=== PATIENT | male | born 1995 | race Caucasian/White ===

== ENCOUNTER 2017-12-27 20:04 | Inpatient (IN) | payer OTHER, SELFPAY ==
[2017-12-27 20:04] VITALS: BP 141/86; PULSE 113; RESP 18; TEMP 36.6; O2SAT 97; BMI 29.8
--- NOTE | 2017-12-27 21:16 | ED.VISSUMM ---
- ER Visit Summary Date of Service: 12/27/17 Chief Complaint: Requesting detox for alcohol abuse History of Present Illness: The patient is a 22 M states he drinks 151 Rum on a daily basis. About a third of a bottle a day. He also uses marijuana daily. He states this is all been going on for approximately a year. And is requesting inpatient detox. He denies any medical complaints. Physical Examination: Well-appearing young male. Vital signs are stable afebrile. HEENT exam unremarkable. Neck nontender no lymphadenopathy. Lungs clear to auscultation bilaterally. Heart regular rhythm rate about 113 no murmur. Chest wall nontender. Abdomen soft nontender. Normal bowel sounds. He is moving all 4 extremities. Neurovascularly intact. Neurologically he is awake alert with no focal motor or sensory deficits. Back nontender. Test Results: None Emergency Department Course and Treatment: I will speak to the hospitalist and the patient is admitted for detox. Treatment Plan: I spoke with the hospitalist for admission and then the patient be evaluated by [facility] tomorrow. Disposition: Admission Impression: Requesting detox for both alcohol and marijuana abuse. This note was generated with [employer] dictation software. It may contain incorrect words, spelling, and punctuation that were not noted in review of the chart prior to signing ED Disposition - Plan for ED Patient: Chief Complaint: Substance Abuse Referrals: Care Physician,No Primary [Primary Care Provider] -
[2017-12-27] MEDS: Acetaminophen 500 MG Tablet 1000 MG PO (22:00)
[2017-12-27] MEDS: LORazepam 1 MG Tablet PO (22:01)
[2017-12-27 22:06] VITALS: BP 127/99; PULSE 92; RESP 16; O2SAT 98
[2017-12-27 22:27] VITALS: BP 132/88; PULSE 81; RESP 16; TEMP 36.9; O2SAT 98
[2017-12-27 22:29] VITALS: BMI 29.5
[2017-12-27 22:35] VITALS: BMI 29.5
--- NOTE | 2017-12-27 23:18 | HP.PCM_ITS ---
Problem List (1) Alcohol withdrawal Status: Acute Qualifiers: Complication of substance-induced condition: uncomplicated Qualified Code(s ): F10.230 - Alcohol dependence with withdrawal, uncomplicated History of Present Illness Date of Admission: 12/27/17 Chief Complaint: Alcohol withdrawal The patient is a 22 year old M was seen in the emergency room at [facility] with a chief complaint of active alcohol withdrawal and the desire to go through detox program at [facility]. Patient states he has been drinking since age 17, during his teenage years he would drink as much as he could obtain during his bouts of drinking and was drinking quite often. Patient states since he has turned 22 and is able to get alcohol legally, his drinking has accelerated and he drinks approximately a third of a bottle ( bottle meaning 750 ml) of 151 vodka per day over the last week. Patient states that he has cut down on his drinking over the last week at the insistence of those around him. Before then, patient was drinking as much as a full bottle of 151 vodka daily on my bad days and on a usual day was drinking approximately a little more than half a bottle of 151 vodka (approximately 400 mL). Patient has not been through detox program before, he has received pressure from his girlfriend who insisted that he come to the emergency room for alcohol detox and the patient has agreed that it is right thing to do. Patient is having symptoms of extreme anxiety and restlessness, he has had some nausea, he also complains of malaise and tremors. No labs were obtained in the emergency room, patient states that his last drink was 2:00 this afternoon, he states he drank approximately 4 ounces of 151 vodka today. Patient will be admitted into the medical stabilization program on [facility] 3 for acute alcohol withdrawal and detox. Past Medical History Allergies No Known Allergies Allergy (Verified 12/27/17 20:05) Home Medications: Ambulatory Orders Medication Instructions Recorded No Known/Unobtainable [No Known 01/17/17 Home Medications] Surgical History: no surgical history Psychiatric History: No pertinent psych hx Lives: Alone Smoking Status: Never smoker Tobacco Use: Non-smoker Alcohol: Heavy Drugs: Marijuana - *Family History Maternal History Items: Cancer - Brain cancer Paternal History Items: No pertinent history Review of Systems Constitutional: Reports: Malaise. Denies: Anorexia, Chills, Fever, Night Sweats , Weakness, Weight Change, Fatigue Eyes: Denies: Cataracts, Conjunctivae Inflammation, Double vision, Drainage HEENT: Denies: Difficulty Swallowing, Dysphasia, Ear Pain, Eye Pain, Head Aches , Hearing Changes, Nasal bleeding, Nasal Congestion, Post Nasal Drip Cardiovascular: Denies: Chest Pain, Claudication, Chest Pressure, Chest Tightness, Edema, Heaviness, Orthopnea, Palpitations, Paroxysmal Noc. Dyspnea Respiratory: Denies: Cough, Hemoptysis, Pleuritic Pain, Shortness of Breath, Shortness of breath at rest, Shortness of breath upon exertion, Sputum production Gastrointestinal: Reports: Nausea. Denies: Abdominal Pain, Constipation, Diarrhea, Hematemesis, Hematochezia, Melena, Vomiting Genitourinary: Denies: Dysuria, Frequency, Hematuria, Hesitancy, Nocturia, Retention, Urgency Musculoskeletal: Denies: Back Pain, Foot Pain, Hand Pain, Joint Pain, Joint stiffness, Joint swelling, Joint Tenderness, Leg Pain Skin: Denies: Dryness, Jaundice, Pruritis, Rash Neurological: Reports: Tremor. Denies: Blurred vision, Double vision, Change in Speech, Slurred speech, Difficulty swallowing, Focal weakness, Headaches, Incoordination, Numbness, Tingling Psychiatric: Reports: Anxiety. Denies: Depression, Homicidal Ideations, Suicidal Ideations Endocrine: Denies: Change in Body Habitus, Heat/ Cold Intolerance, Polydipsia, Polyuria Hematologic/ Lymphatic: Denies: Adenopathy, Anemia, Easy Bruising, Easy Bleeding , Petechiae, Purpura VTE Information - Inpt Only VTE Present on Admission: No VTE Mechan Device Prophylaxis: None VTE Pharm Prophylaxis ordered?: No Reason prophylaxis not ordered:: Treatment Not Indicated Patient Problems: Active and Suspected Problems Alcohol withdrawal (Acute) - Physical Exam General: Alert, Oriented x3, Cooperative, No apparent distress, Well developed, Well nourished HEENT: Atraumatic, PERRLA, EOMI, Normocephalic Oral: Moist Mucosa Neck: Supple, No JVD, No Nuchal Rigidity, Trachea Midline, Thyroid Normal Size and Texture Lungs: Clear to auscultation, Normal air movement, No rhonchi, No wheeze, No rales Cardiovascular: Regular rate, Regular Rhythm, Normal S1, Normal S2, No murmurs, No Ectopic Activity, PMI Normal, No rub noted, No Gallop Abdomen: Bowel Sounds Present, Soft, Non Tender, Non-Distended, No hernias noted Extremities: No clubbing, No cyanosis, No edema, Capillary Refill Less than 3 Seconds Skin: No rashes, No breakdown Musculoskeletal: No Tenderness to Palpation of Joints or Extremities Neurological: Cranial nerves II-XII grossly intact, Neuro grossly intact, Sensory exam intact to light touch and pain, Coordination normal Psych/Mental Status: Appropriate, Agitated, Anxious, Restless, - - Patient is alert and oriented ?3 Vital Signs Temp Pulse Resp BP Pulse Ox 98.4 F 81 16 132/88 H 98 12/27/17 22:27 12/27/17 22:27 12/27/17 22:27 12/27/17 22:27 12/27/17 22:27 Oxygen Delivery Method Room Air Weight: 98.7 kg Body Mass Index (BMI) 29.5 Assessment/Plan All Active Problems Alcohol withdrawal (Acute) #1 acute alcohol withdrawal-patient will be admitted into the medical stabilization program on [facility] 3, orders were entered using the medical stabilization order sets, patient will have CIWA scores monitored, he will be given Ativan IV as needed, patient will be placed on Librium. I do not feel patient needs any lab work at this time #2 alcoholism Code Visit Inpatient E&M: 77744 Init Hosp L3
[2017-12-27] MEDS: Acetaminophen 500 MG Tablet PO (23:41)
[2017-12-27] MEDS: LORazepam 1 MG Tablet 2 MG PO (23:42)
[2017-12-28 03:18] VITALS: BP 114/66; PULSE 93; RESP 14; TEMP 36.7; O2SAT 99
[2017-12-28] MEDS: chlordiazePOXIDE 25 MG Capsule PO ×4 (03:22→23:35)
--- NOTE | 2017-12-28 07:34 | PN_ITS ---
Patient Problems: Active and Suspected Problems Alcohol withdrawal (Acute) Subjective: Patient was seen and examined. He complains of dyspepsia. Denies chest pain, dizziness, SOB. Last CIWA score was 4 this morning. Vitals/I&O's: Vital Signs Temp Pulse Resp BP Pulse Ox 98.0 F 93 14 114/66 99 12/28/17 03:18 12/28/17 03:18 12/28/17 03:18 12/28/17 03:18 12/28/17 03:18 Oxygen Delivery Method Room Air Weight: 98.7 kg Body Mass Index (BMI) 29.5 Intake and Output for Last 24 Hours 12/26/17 12/27/17 12/28/17 23:59 23:59 23:59 Intake Total 900 / 900 Balance 900 / 900 General: Alert, Oriented x3, Cooperative, No apparent distress HEENT: Atraumatic, PERRLA, EOMI, Normocephalic Oral: Moist Mucosa Neck: Supple Lungs: Clear to auscultation, Normal air movement Cardiovascular: Regular rate, Regular Rhythm, Normal S1, Normal S2, No murmurs Abdomen: Bowel Sounds Present, Soft, Non Tender, Non-Distended, No Hepato- splenomegaly Extremities: No edema Skin: No rashes Musculoskeletal: No Tenderness to Palpation of Joints or Extremities Lymphatic: No Cervical, Supraclavicular, or Inguinal Adenopathy Neurological: Cranial nerves II-XII grossly intact Psych/Mental Status: Normal Affect, Appropriate Current Medications Acetaminophen (Tylenol) 500 mg PO Q4H PRN PRN PRN Reason: Temp > 100.4 F Last Admin: 12/27/17 23:41 Dose: 500 mg Chlordiazepoxide (Librium) 50 mg PO Q6H SAJI PRN Reason: Taper Stop: 12/30/17 23:59 Last Admin: 12/28/17 03:22 Dose: 50 mg Dicyclomine HCl (Bentyl) 20 mg PO Q6H PRN PRN PRN Reason: abdominal discomfort Folic Acid (Folic Acid) 1 mg PO DAILYCM SAJI Ibuprofen (Motrin) 600 mg PO Q8H PRN PRN PRN Reason: Mild-Moderate Pain (1-5/10) Lorazepam (Ativan) 2 mg PO Q2H PRN PRN; Protocol PRN Reason: CIWA score > 8 but <15 Last Admin: 12/27/17 23:42 Dose: 2 mg Multivitamins (Multivitamin) 1 tablet PO DAILYCM SAJI Sodium Chloride () 5 - 30 ml IV UD PRN PRN Reason: SALINE FLUSH Thiamine HCl (Vitamin B1) 100 mg PO DAILYCM SAJI Medical Necessity - Tobacco Use Smoking Status: Never smoker Tobacco Use: Non-smoker Assessment/Plan All Active Problems Alcohol withdrawal (Acute) 22 y/o male with PMHX of alcohol dependence who comes in for medical stabilization for alcohol withdrawal. 1. Acute alcohol withdrawal, stable, will continue to monitor under the medical stabilization program. 2. Alcohol dependence, advised to quit 3. DVT PPx- early ambulation. Code Visit Inpatient E&M: 90217 Subs Hosp L2
[2017-12-28 09:20] VITALS: BP 133/82; PULSE 67; RESP 14; TEMP 36.6
[2017-12-28] MEDS: Folic Acid 1 MG Tablet PO (09:32)
[2017-12-28] MEDS: Multivitamins,Therapeutic Tablet 1 TABLET PO (09:32)
[2017-12-28] MEDS: Thiamine Hydrochloride 100 MG Tablet PO (09:32)
[2017-12-28] MEDS: Ibuprofen 600 MG Tablet PO (09:32)
[2017-12-28] MEDS: LORazepam 1 MG Tablet 2 MG PO ×2 (12:04→21:50)
[2017-12-28 14:50] VITALS: BP 129/79; PULSE 70; RESP 16; TEMP 36.5
[2017-12-28 18:55] VITALS: BP 125/69; PULSE 77; RESP 16; TEMP 36.7
[2017-12-28] MEDS: hydrOXYzine PAM 25 MG Capsule 50 MG PO (19:30)
[2017-12-28 21:40] VITALS: BP 129/82; PULSE 65; RESP 14; TEMP 36.6; O2SAT 97
[2017-12-29 03:06] VITALS: BP 128/73; PULSE 92; RESP 16; TEMP 36.4; O2SAT 99
[2017-12-29 06:03] LABS: Absolute Lymphocyte Count 2.31 X10^3/ul (0.83-4.51); Absolute Neutrophil Count 2.8 X10^3/uL (2.0-7.7); Basophil# 0.03 X10^3/uL; Basophil% 0.5 % (0-1); Eosinophils% 3.4 % (0-5); Hematocrit 44.3 % (40-54); Hemoglobin 14.9 g/dl (13.0-16.5); Lymphocyte # 2.31 X10^3/ul (4.0); Lymphocyte % 39.5 % (19-41); Mean Corp Hgb Conc 33.6 g/gl (32-36); Mean Corpuscular Hgb 30.6 pg (27.0-32.0); Mean Platelet Vol. 9.8 fl (6.2-12.0); Monocyte# 0.46 X10^3/uL; Monocyte% 7.9 % (0-10); Neutrophil # 2.84 X10^3/uL (2.7-7.7); Neutrophil % 48.5 % (47-70); Platelet Count 200 K/mm3 (150-450); RBC Distribution Width CV 12.8 % (11.6-14.6); RBC Distribution Width SD 42.3 fl (35.1-43.9); Red Blood Count 4.87 M/mm3 (4.6-6.2); White Blood Count 5.9 K/mm3 (4.4-11.0)
[2017-12-29 06:20] LABS: POSITIVE COUNT NO; POSITIVE DIFFERENTIAL NO; POSITIVE MORPHOLOGY NO
[2017-12-29 06:27] LABS: ALB/GLOB Ratio 1.2 RATIO (0.9-2.4); AST(SGOT) 30 U/L (15-37); Alanine Aminotransfer ALT/SGPT 43 U/L (16-61); Albumin, Serum 3.8 g/dL (3.2-5.0); Alkaline Phosphatase 53 U/L (45-117); Anion Gap 8 (5-15); BUN 17 mg/dL (7-18); BUN/Creat Ratio 16.8 RATIO (10-20); Calcium,Total 8.6 mg/dL (8.5-10.1); Chloride 108 mmol/L (98-107); Creatinine, Serum 1.01 mg/dL (0.70-1.30); EST Glomerular Filtration Rate 98 mL/min (>60); Est Glom Filt Rate - Afr Amer 119 mL/min (>60); Estimated Creatinine Clearance 126.99 ml/min; Globulin 3.1 g/dL (2.2-4.2); Glucose 89 mg/dL (74-106); Potassium 4.1 mmol/L (3.5-5.1); Protein, Total 6.9 g/dL (6.4-8.2); Sodium Level 142 mmol/L (136-145)
--- NOTE | 2017-12-29 07:58 | PCM.PN.HOSP ---
Patient Problems: Active and Suspected Problems Alcohol withdrawal (Acute) Subjective: Patient was seen and examined. Had episodes of anxiety yesterday. No other acute events overnight. Denies any fever or chills. Objective: Physical exam: General: Alert, Oriented x3, Cooperative, No apparent distress HEENT: Atraumatic, PERRLA, EOMI, Normocephalic Oral: Moist Mucosa Neck: Supple Lungs: Clear to auscultation, Normal air movement Cardiovascular: Regular rate, Regular Rhythm, Normal S1, Normal S2, No murmurs Abdomen: Bowel Sounds Present, Soft, Non Tender, Non-Distended, No Hepato-splenomegaly Extremities: No edema Skin: No rashes Musculoskeletal: No Tenderness to Palpation of Joints or Extremities Lymphatic: No Cervical, Supraclavicular, or Inguinal Adenopathy Neurological: Cranial nerves II-XII grossly intact Psych/Mental Status: Normal Affect, Appropriate Vitals/I&O's: Vital Signs Temp Pulse Resp BP Pulse Ox 97.6 F L 92 16 128/73 H 99 12/29/17 03:06 12/29/17 03:06 12/29/17 03:06 12/29/17 03:06 12/29/17 03:06 Oxygen Delivery Method Room Air Weight: 98.7 kg Body Mass Index (BMI) 29.5 Intake and Output for Last 24 Hours 12/27/17 12/28/17 12/29/17 23:59 23:59 23:59 Intake Total 2049 900 / 900 Balance 2049 900 / 900 Laboratory Results 12/29/17 04:55: WBC 5.9, RBC 4.87, Hgb 14.9, Hct 44.3, MCV 91.0, MCH 30.6, MCHC 33.6, RDW 12.8, RDW Differential 42.3, Plt Count 200, MPV 9.8, Immature Gran % (Auto) 0.200, Neut % (Auto) 48.5, Lymph % (Auto) 39.5, Mower % (Auto) 7.9, Eos % (Auto) 3.4, Baso % (Auto) 0.5, Absolute Neuts (auto) 2.8, Absolute Lymphs (auto) 2.31, Total Counted Not Reportable 12/29/17 04:55: Sodium 142, Potassium 4.1, Chloride 108 H, Carbon Dioxide 26.0, Anion Gap 8, BUN 17, Creatinine 1.01, Estim Creat Clear Calc 126.99, Est GFR (MDRD) Af Amer 119, Est GFR (MDRD) Non-Af 98, BUN/Creatinine Ratio 16.8, Glucose 89, Calcium 8.6, Total Bilirubin 0.50, AST 30, ALT 43, Alkaline Phosphatase 53, Total Protein 6.9, Albumin 3.8, Globulin 3.1, Albumin/Globulin Ratio 1.2 Current Medications Acetaminophen (Tylenol) 500 mg PO Q4H PRN PRN PRN Reason: Temp > 100.4 F Last Admin: 12/27/17 23:41 Dose: 500 mg Al Hydroxide/Mg Hydroxide (Mylanta Ii) 15 ml PO Q6H PRN PRN PRN Reason: DYSPEPSIA/INDIGESTION Chlordiazepoxide (Librium) 50 mg PO Q8H [facility] PRN Reason: Taper Stop: 12/30/17 23:59 Last Admin: 12/28/17 23:35 Dose: 50 mg Dicyclomine HCl (Bentyl) 20 mg PO Q6H PRN PRN PRN Reason: abdominal discomfort Folic Acid (Folic Acid) 1 mg PO [facility]ILY[facility] Last Admin: 12/28/17 09:32 Dose: 1 mg Hydroxyzine Pamoate (Vistaril Pamoate Capsule) 50 mg PO Q6H PRN PRN PRN Reason: Mild Anxiety (score 1/3) Last Admin: 12/28/17 19:30 Dose: 50 mg Ibuprofen (Motrin) 600 mg PO Q8H PRN PRN PRN Reason: Mild-Moderate Pain (1-5/10) Last Admin: 12/28/17 09:32 Dose: 600 mg Lorazepam (Ativan) 2 mg PO Q2H PRN PRN; Protocol PRN Reason: CIWA score > 8 but <15 Last Admin: 12/28/17 21:50 Dose: 2 mg Multivitamins (Multivitamin) 1 tablet PO DAILYCO[facility] Last Admin: 12/28/17 09:32 Dose: 1 tablet Sodium Chloride () 5 - 30 ml IV UD PRN PRN Reason: SALINE FLUSH Thiamine HCl (Vitamin B1) 100 mg PO DAILYCOX [facility] Last Admin: 12/28/17 09:32 Dose: 100 mg Medical Necessity - Tobacco Use Smoking Status: Never smoker Tobacco Use: Non-smoker Assessment/Plan All Active Problems Alcohol withdrawal (Acute) 22 y/o male with PMHX of alcohol dependence who comes in for medical stabilization for alcohol withdrawal. 1. Acute alcohol withdrawal, stable, will continue to monitor under the medical stabilization program. 2. Alcohol dependence, advised to quit 3. DVT PPx- early ambulation. Code Visit Inpatient E&M: 11775 Subs Hosp L2
[2017-12-29 08:39] VITALS: BP 121/78; PULSE 55; RESP 18; TEMP 36.6; O2SAT 100
[2017-12-29 08:42] VITALS: BP 122/78; PULSE 55; RESP 18; TEMP 36.6
[2017-12-29] MEDS: chlordiazePOXIDE 25 MG Capsule PO ×2 (08:45→17:52)
[2017-12-29] MEDS: Multivitamins,Therapeutic Tablet 1 TABLET PO (08:45)
[2017-12-29] MEDS: Thiamine Hydrochloride 100 MG Tablet PO (08:45)
[2017-12-29] MEDS: Folic Acid 1 MG Tablet PO (08:45)
[2017-12-29] MEDS: LORazepam 1 MG Tablet 2 MG PO ×2 (12:34→18:57)
[2017-12-29 14:00] VITALS: BP 124/68; PULSE 77; RESP 16; TEMP 36.9
[2017-12-29] MEDS: hydrOXYzine PAM 25 MG Capsule 50 MG PO ×2 (14:25→21:11)
--- NOTE | 2017-12-29 15:08 | CHAPLAIN ---
Type of Pastoral Visit _x__ Initial Visit ___ Follow-up Visit ___ On-call Visit ___ General Patient Visit ___ Spiritual Assessment ___ Family Conference ___ Bereavement ___ Rapid Response ___ Code Blue ___ Other (describe below) Pastoral Care Referral From _x__ Patient ___ Family ___ Nurse ___ Physician ___ Sales Compensation Analyst ___ Thiokol Operator ___ Other (describe below) Sacrament/Intervention _x__ Active listening ___ Anointing ___ Mosque ___ Bereavement ___ Communion _x__ Bella exploration ___ _x__ Life review _x__ Prayer ___ Reconciliation ___ Sacrament of Sick _x__ Supportive presence ___ Wedding ___ Other (describe below) Pastoral Comments patient has shifted addiction to alcohol; family intervention brought him awareness of depth of the addiction; pt is newly engaged to be and need to get this handled; pt has disappointment with a parent and spiritual pain from deception of a community outreach worker that he sees as underlying in some of his emotional struggles; pt welcomes prayer and further visits; pt will have counseling upon release from hospital
[2017-12-29 17:51] VITALS: BP 123/68; PULSE 79; RESP 18; TEMP 36.6
[2017-12-29 21:18] VITALS: BP 134/77; PULSE 68; RESP 16; TEMP 36.4; O2SAT 97
[2017-12-30] MEDS: chlordiazePOXIDE 25 MG Capsule PO ×2 (00:09→11:27)
[2017-12-30 06:43] VITALS: BP 109/77; PULSE 63; RESP 16; TEMP 36.5; O2SAT 97
--- NOTE | 2017-12-30 08:40 | DS.PCM_ITS ---
Discharge Date and Diagnosis Date of Admission: 12/27/17 Date of Discharge: 12/30/17 - Primary Discharge Diagnosis Active and Suspected Problems Alcohol withdrawal (Acute) Anxiety - Secondary Discharge Diagnosis Anxiety Hospital Course and Treatment None Operations: None Procedures: None Summary of Care Provided: 22 y/o male with PMHX of alcohol dependence, anxiety disorder comes in for medical stabilization for alcohol withdrawal. He has been drinking since the age of 17. He would drink as much he can in his teenage years. After the age of 22 years, when he could get alcoholical legally, he has accelerated his drinking and drinks about a third of a bottle. He drinks now a full bottle of 151 vodka daily. He comes in at the persuasion of the family. He last labs drawn alcohol 2 PM prior to his admission. His management was as follows: 1. Acute alcohol withdrawal, managed with Librium and Ativan on the day medical stabilization call with the [facility] program. Patient improved and was discharged to follow-up with an inpatient drug rehab program and later on to follow-up with outpatient counseling center. 2. Alcohol dependence, advised to quit 3. Anxiety disorder, started on celexa Discharge Diet: No Restrictions Discharge Activity: Return to Normal Activity Home Medications: Medications to take at Discharge Citalopram [Celexa] 10 mg PO DAILY #30 tab 12/30/17 Following Prescrptions Were Given to Patient: Citalopram [Celexa] 10 mg PO DAILY #30 tab Primary Care Physician: Care Physician,No Primary [Primary Care Provider] - Please follow up with your Primary Care Physician in: within in 2 weeks Disposition: Home Minutes spent on discharge:: 45 Patient Condition:: Stable Medical Necessity - Tobacco Use Smoking Status: Never smoker Tobacco Use: Non-smoker Meaningful Use Info Meaningful Use Diagnoses (Choose all that apply): None applicable Code Visit Inpatient E&M: 44274 Disch Hosp
--- NOTE | 2017-12-30 08:40 | PCM.DC ---
- Discharge Diagnoses Current Active Problems: Current Active and Chronic Problems Alcohol withdrawal (Acute) Reason(s) for Visit for Discharge Instructions: Acute alcohol withdrawal You will use the following diet at home:: Regular Your food should be the consistency of: Regular Your liquids should be the consistency of: Regular/Thin Discharge Activity: Return to Normal Activity Additional Instructions: You are strongly advised to stop drinking. Follow-up with the aftercare program as planned and also with your therapist and PCP. Allergies/Adverse Reactions: Allergies No Known Allergies Allergy (Verified 12/27/17 20:05) Medications to take at Discharge Citalopram [Celexa] 10 mg PO DAILY #30 tab 12/30/17 The following prescriptions were given: Citalopram [Celexa] 10 mg PO DAILY #30 tab Primary Care Physician: Care Physician,No Primary [Primary Care Provider] - Please follow up with your Primary Care Physician in: within 2 weeks Test Results: Proposed Discharge Date: 12/30/17
[2017-12-30 10:00] VITALS: BP 124/72; PULSE 73; RESP 16
[2017-12-30] MEDS: Folic Acid 1 MG Tablet PO (11:27)
[2017-12-30] MEDS: Thiamine Hydrochloride 100 MG Tablet PO (11:27)
[2017-12-30] MEDS: Multivitamins,Therapeutic Tablet 1 TABLET PO (11:27)
[2017-12-30] MEDS: Citalopram 10 MG Tablet PO (11:27)
--- NOTE | 2017-12-30 12:38 | CHAPLAIN ---
Type of Pastoral Visit ___ Initial Visit _x__ Follow-up Visit ___ On-call Visit ___ General Patient Visit ___ Spiritual Assessment ___ Family Conference ___ Bereavement ___ Rapid Response ___ Code Blue ___ Other (describe below) Pastoral Care Referral From _x__ Patient ___ Family ___ Nurse ___ Physician ___ Substitute Teacher ___ Barbed Wire Machine Operator ___ Other (describe below) Sacrament/Intervention _x__ Active listening ___ Anointing ___ Jewish ___ Bereavement ___ Communion ___ Bella exploration ___ _x__ Life review _x__ Prayer ___ Reconciliation ___ Sacrament of Sick _x__ Supportive presence ___ Wedding ___ Other (describe below) Pastoral Comments patient was walking in hallway and we had a follow up conversation; girlfriend of pt arrived and was introduced; discussed the rehab that pt has accepted to live in for next 30 days; talked about future and life that can be better; girlfriend appears very supportive; offered support and prayer
[2017-12-30] MEDS: hydrOXYzine PAM 25 MG Capsule 50 MG PO (13:14)
--- NOTE | 2017-12-30 13:14 | NURSING ---
pt requesting medication to help with anxiety- related to discharge and going to inpt facility. prn vistaril given per pt request.
== END 2017-12-30 13:30 | disposition home or self-care (01) | DRG 897 ==
LOC: ED 21:04 → MS3 22:03
PROVIDERS: Admitting Provider Internal Medicine; Emergency Provider Emergency Medicine; Visit Provider Internal Medicine
DX: F10.239 Alcohol dependence with withdrawal, unspecified (principal); F41.9 Anxiety disorder, unspecified; F12.10 Cannabis abuse, uncomplicated
CPT/HCPCS: 36415; 80053; 85025; 97802; 99283

== ENCOUNTER → 2018-11-12 09:23 | Outpatient (CLI) | payer OTHER, SELFPAY ==
[2018-11-12 09:53] LABS: Hematocrit 41.9 % (40-54); Hemoglobin 14.5 g/dl (13.0-16.5); Mean Corp Hgb Conc 34.6 g/gl (32-36); Mean Corpuscular Hgb 31.3 pg (27.0-32.0); Mean Corpuscular Volume 90.3 fL (80-94); Mean Platelet Vol. 9.9 fl (6.2-12.0); Platelet Count 221 K/mm3 (150-450); RBC Distribution Width SD 39.5 fl (35.1-43.9); Red Blood Count 4.64 M/mm3 (4.6-6.2); White Blood Count 6.1 K/mm3 (4.4-11.0)
[2018-11-12 09:59] LABS: Scan Indicated on CBC? Y/N NO
[2018-11-12 10:28] LABS: Hemoglobin A1c 4.9 % (4.2-6.3)
[2018-11-12 10:41] LABS: Homocysteine 15.6 umol/L (3.2-10.7)
[2018-11-12 10:55] LABS: Vitamin B12 196 pg/mL (211-911); Vitamin D,25 Hydroxy 60.8 ng/mL (29.95-100.01)
[2018-11-12 10:59] LABS: ALB/GLOB Ratio 1.7 RATIO (0.9-2.4); AST(SGOT) 21 U/L (15-37); Alanine Aminotransfer ALT/SGPT 28 U/L (16-61); Albumin, Serum 4.5 g/dL (3.2-5.0); Alkaline Phosphatase 36 U/L (45-117); Anion Gap 6 (5-15); BUN 17 mg/dL (7-18); BUN/Creat Ratio 14.9 RATIO (10-20); CRP < 2.90 mg/L (0.0-3.0); Calcium,Total 9.2 mg/dL (8.5-10.1); Chloride 106 mmol/L (98-107); Cholesterol 141 mg/dL (200); Creatinine, Serum 1.14 mg/dL (0.70-1.30); EST Glomerular Filtration Rate 85 mL/min (>60); Est Glom Filt Rate - Afr Amer 103 mL/min (>60); Estradiol 15.3 pg/mL; Follicle Stimulating Hormone 5.8 mIU/mL; Globulin 2.7 g/dL (2.2-4.2); Glucose 96 mg/dL (74-106); High Density Lipoprotein 56 mg/dL; Iron 102 ug/dL (65-175); Luteinizing Hormone 4.8 mIU/mL; PSA,Total - Annual Screen 0.44 ng/mL (0.00-4.00); Potassium 3.9 mmol/L (3.5-5.1); Prolactin 8.6 ng/mL; Protein, Total 7.2 g/dL (6.4-8.2); Sodium Level 140 mmol/L (136-145); T4 Total, Thyroxin 9.1 ug/dL (4.5-12.1); Thyroid Stim Hormone (TSH) 1.63 uIU/mL (0.358-3.74); Triglycerides 87 mg/dL; Very Low Density Lipoprotein 17 mg/dL (5-40)
[2018-11-15 12:06] LABS: DHEA Sulfate 453.5 ug/dL (164.3-530.5); Insulin Like Growth Factor 132 ng/mL (115-355); Testosterone, % Free 2.43 % (1.50-4.20); Testosterone, Free 13.39 ng/dL (5.00-21.00)
[2018-11-15 13:25] LABS: Testosterone, Total 551 ng/dL (264-916)
== END ==
PROVIDERS: Referring Provider Registered Nurse; Visit Provider Registered Nurse
DX: M62.81 Muscle weakness (generalized) (principal); R53.82 Chronic fatigue, unspecified
CPT/HCPCS: 36415; 80053; 80061; 82306; 82533; 82607; 82627; 82670; 82746; 83001; 83002; 83036; 83090; 83540; 83735; 84144; 84146; 84153; 84270; 84305; 84402; 84403; 84436; 84439; 84443; 84481; 85027; 86140; 82626; G0103

== ENCOUNTER 2020-10-26 01:31 | Emergency (ER) | payer OTHER, SELFPAY ==
[2020-10-26 01:36] VITALS: BP 133/84; PULSE 136; RESP 24; TEMP 36.9; O2SAT 95; BMI 33.1
--- NOTE | 2020-10-26 01:46 | EX.ED.DYSGE1 ---
HPI History of Present Illness Chief Complaint: ETOH Intox Informant: patient and EMS Associated Symptoms Associated Symptoms: Denies Narrative Narrative: Patient drinking alcohol heavily tonight. He was on someone else's porch and apparently in and out of consciousness and could not get a ride home, so he was brought to the emergency department. Patient is awake, he states he met some people at a bar and went home with them because they got a stripper, and he remembers watching the stripper but did not do anything else unusual except for drinking alcohol. He denies having any physical symptoms right now. He states he lives with his parents, is supposed to be working in the morning, and does not want to call his parents to bring him home. PFSH PFSH no medical history Home Medications NK 10/26/20 [History Last Taken Unknown] Allergy/AdvReac Type Severity Reaction Status Date / Time No Known Allergies Allergy Verified 10/26/20 01:39 Surgical History (Updated 10/26/20 @ 01:42 by Marek Burgess) History of tympanostomy History of tympanostomy tube placement Social History Smoking Status: Current every day smoker alcohol intake: current ROS ROS ED Constitutional Constitutional ED: Denies chills or fever(s) Eyes Eyes: Denies change in vision or diplopia ENT ENT ED: Denies rhinorrhea or sore throat Cardiovascular Cardiovascular: Denies chest pain or palpitations Respiratory/Chest Respiratory/Chest: Denies cough or dyspnea Gastrointestinal Gastrointestinal: Denies abdominal pain, diarrhea, nausea or vomiting Genitourinary Genitourinary ED: Denies dysuria or hematuria Musculoskeletal Musculoskeletal: Denies back pain or neck pain Integumentary Denies abscess or rash Neurologic Neurologic: Denies headache(s), paresthesias or weakness Psychiatric Psychiatric: Denies anxiety or suicidal thoughts EXAM Physical Exam Const Vital Signs: 10/26/20 01:36 10/26/20 04:02 10/26/20 05:07 Temperature 98.4 F Temperature Source Temporal Pulse Rate 136 H 92 Respiratory Rate 24 H 185 H 16 Blood Pressure 133/84 H Blood Pressure Mean 100 Pulse Ox 95 99 Oxygen Delivery Method Room Air Room Air 10/26/20 06:02 Temperature Temperature Source Pulse Rate 88 Respiratory Rate 16 Blood Pressure Blood Pressure Mean Pulse Ox 97 Oxygen Delivery Method Room Air Positive well nourished and well developed General Appearance ED: well developed, NAD and other Grossly intoxicated. Cooperative and pleasant. HEENT Reports moist mucous membranes normocephalic and atraumatic Eyes PERRL and EOMs intact bilaterally EOM: nystagmus horizontal Neck full ROM and supple Resp normal respiratory effort and clear to auscultation bilaterally Cardio regular rate, regular rhythm and no murmurs GI non-tender and non-distended Auscultation: normoactive bowel sounds Palpation: soft Back/Spine no CVA tenderness General Back: other FROM Extremity normal to inspection General Extremety ED: Negative for edema, pulses abnormal or tenderness General Extremity: Negative for edema or pulses abnormal Neuro oriented x3, CN's II-XII intact bilaterally and no sensory deficits noted Sensorium / Orientation: awake and alert Motor Exam: strength 5/5 throughout Psych mental status grossly normal Skin no rashes or lesions noted and no wounds MDM MDM MDM Narrative Medical decision making narrative: This patient is intoxicated, his airway is patent and stable, he is a little tachycardic, but the rest of his exam is unremarkable. He is not tachypnea on my exam. He is probably a little dehydrated given all of the alcohol, he is thirsty and was given some water to drink. He slept throughout the motor builder assembler in the emergency department where he was monitored closely. In the morning he was able to get up and ambulate down the hallway without ataxia, more alert, feeling better. He remembers nothing about the night. He is waiting for his sister to take him home. Discharge Plan Triage Chief Complaint: ETOH Intox ED Provider: Chuy Busby Dx/Rx/DC Orders Clinical Impression: Alcohol intoxication Instructions: ED Alcohol Intoxication Prescriptions: No Action NK RF: 0 Primary Care Provider: Care Physician,No Primary Referrals: Thom Hay MD [STAFF PHYSICIAN] - As Needed Care Physician,No Primary [Primary Care Provider] - Disposition Disposition: Home, self care
[2020-10-26 04:02] VITALS: RESP 185
[2020-10-26 05:07] VITALS: PULSE 92; RESP 16; O2SAT 99
[2020-10-26 06:02] VITALS: PULSE 88; RESP 16; O2SAT 97
[2020-10-26 07:06] VITALS: BP 133/60; PULSE 83; RESP 18; O2SAT 96
== END 2020-10-26 07:07 | disposition home or self-care (01) ==
PROVIDERS: Emergency Provider Emergency Medicine
DX: F10.129 Alcohol abuse with intoxication, unspecified (principal); Y90.9 Presence of alcohol in blood, level not specified; F17.200 Nicotine dependence, unspecified, uncomplicated
CPT/HCPCS: 99285

== ENCOUNTER 2024-03-04 11:51 | Emergency (ER) | payer SELFPAY ==
[2024-03-04 11:51] VITALS: BP 133/100; PULSE 93; RESP 14; TEMP 36.6; O2SAT 98; BMI 32.9
--- NOTE | 2024-03-04 13:19 | EX.ED.DYSGE1 ---
HPI <SARAH Moreno - Last Filed: 03/04/24 18:05> History of Present Illness Chief Complaint: Bite Narrative Narrative: Patient is a 29-year-old male with no significant ankle history presents to the emergency department for concern about a bite from a chipmunk 2 weeks ago. Patient states that a chipmunk that he rescued secondary to being cold. The chipmunk was able to climb up and down his arms, and when he went to pick it up off of his shoulder it bit his fingers. This was 2 weeks ago, patient states he googled it and was concerned for rabies. Denies any other symptoms. Denies any significant redness to the hands. PFSH <SARAH Moreno - Last Filed: 03/04/24 18:05> [facility] Home Medications ?Medication ?Instructions ?Recorded ?Last Taken ?Type NK 10/26/20 Unknown History Allergy/AdvReac Type Severity Reaction Status Date / Time No Known Allergies Allergy Verified 03/04/24 11:52 Surgical History (Updated 10/26/20 @ 01:42 by Marek Burgess) History of tympanostomy tube placement History of tympanostomy Social History Smoking Status: Current every day smoker tobacco type: e-cigarettes alcohol intake: current ROS <SARAH Moreno - Last Filed: 03/04/24 18:05> ROS ED ROS Narrative Constitutional: Negative for fever, chills, weight loss, weakness Eyes: Negative for vision loss, vision change, double vision ENT: Negative for any sore throat, ear pain, congestion Cardiovascular: Negative for any chest pain, tightness, palpitations Respiratory: Negative for any cough, sputum production, hemoptysis, dyspnea, dyspnea on exertion, orthopnea Gastrointestinal: Negative for any abdominal pain, nausea, vomiting, diarrhea, constipation, blood in stool, blood in vomit : Negative for any urinary frequency, dysuria, retention, blood in urine Muscle skeletal: Negative for any neck pain, back pain Neurological: Negative for any headache, syncope, dizziness Skin: Negative for any rashes, itching, abrasions, lacerations. Positive for superficial old bite moran to the distal tip of his fingers. Psychiatric: Negative for any depression, anxiety, stress, suicidal ideation, homicidal ideation Hematologic: Negative for any excessive bruising, easy bleeding EXAM <SARAH Moreno - Last Filed: 03/04/24 18:05> Physical Exam Narrative Exam Narrative: Vital signs reviewed. Extremities: No peripheral edema, no signs of gross trauma or deformity. Active full range of motion of all extremities. Patient does have some superficial mroan on his distal fingers however there is no redness, patient has full range of motion Neuro: Cranial nerves II through XII intact, no focal neurological deficits. Skin: Clean dry and intact with no rash, purpura, petechiae, vesicles or pustules. Backs/flank: No CVA tenderness, no midline spinal tenderness, no deformity. Psych: Normal mood and affect. No SI, HI or acute psychosis. Const Vital Signs: 03/04/24 11:51 Temperature 98 F Temperature Source Temporal Pulse Rate 93 Respiratory Rate 14 Blood Pressure 133/100 H Blood Pressure Mean 111 Pulse Ox 98 Oxygen Delivery Method Room Air <Dr. Stephanie Chong DO - Last Filed: 03/07/24 13:12> Physical Exam Const Vital Signs: 03/04/24 11:51 Temperature 98 F Temperature Source Temporal Pulse Rate 93 Respiratory Rate 14 Blood Pressure 133/100 H Blood Pressure Mean 111 Pulse Ox 98 Oxygen Delivery Method Room Air MDM <SARAH Moreno - Last Filed: 03/04/24 18:05> MDM Treatment and Re-Evaluation :: Differential diagnosis includes however is not limited to: Cellulitis, foreign body, laceration Patient appears generally well, patient appears nontoxic, vital signs are stable. Patient presents to the emergency department after being bit by a chipmunk that he rescued 2 weeks ago. Patient's biggest concern was rabies. I did educate the patient regarding rabies and rodents. Patient will be updated on his tetanus vaccination, patient does not need any rabies vaccine, rabies immunoglobulin. Patient will be stable for discharge. Patient can the area clean and dry. Stable for discharge. <Dr. Stephanie Chong, - Last Filed: 03/07/24 13:12> MDM Treatment and Re-Evaluation :: Differential diagnosis includes however is not limited to: Cellulitis, foreign body, laceration Patient appears generally well, patient appears nontoxic, vital signs are stable. Patient presents to the emergency department after being bit by a chipmunk that he rescued 2 weeks ago. Patient's biggest concern was rabies. I did educate the patient regarding rabies and rodents. Patient will be updated on his tetanus vaccination, patient does not need any rabies vaccine, rabies immunoglobulin. Patient will be stable for discharge. Patient can the area clean and dry. Stable for discharge. I have personally performed a face to face assessment of the patient and have reviewed the GEGE Note. I performed a substantive portion of the visit including all aspects of the following. My simpson findings include: History is patient is a 29-year-old male who is presenting for concern of rabies. Patient found limb chipmunk outside 1 morning about 2 weeks ago. He tried to warm it up and then the chipmunk started crawling on him. He then tried to grab the chipmunk off his shoulder and the chipmunk bit his hand. He is now worried that maybe he contracted rabies. No other complaints or injuries reported. Patient has healing wounds to his fingers that do not have any signs of secondary infection. Discussed that small gerbil such as chipmunks do not carry rabies and I do not think he requires immunization/vaccination for rabies. Was offered tetanus vaccine but declines. Discharged home. Otherwise well-appearing. No other complaints or concerns reported at this time. Counseled to avoid handling wild animals. Other additions or changes: [None] Discharge Plan Triage Chief Complaint: Bite ED Midlevel Provider: Thom Albright ED Provider: Stephanie Chong Dx/Rx/DC Orders Clinical Impression: Bite by animal Instructions: ED Animal Bite (General) Prescriptions: No Action NK Primary Care Provider: Care Physician,No Primary Referrals: Care Physician,No Primary [Primary Care Provider] - Activity Restrictions/Additional Instructions: Continue to keep the area clean and dry. I would be more concerned if you get some more redness or pain at the areas of the bites. Your tetanus vaccination will be updated today, this is tetanus diphtheria and pertussis, it is a good vaccine. You are good now for 10 years. Print Language: Macedonian Disposition Disposition: Elopement Discharge Date/Time: 03/04/24 13:44
--- NOTE | 2024-03-04 13:43 | NURSING ---
Pt eloped before d/c paperwork and tetanus shot
== END 2024-03-04 13:44 | disposition left against medical advice (07) ==
PROVIDERS: Emergency Provider Emergency Medicine; Visit Provider Emergency Medicine
DX: S60.479A Other superficial bite of unspecified finger, initial encounter (principal); W53.81XA Bitten by other rodent, initial encounter; F17.290 Nicotine dependence, other tobacco product, uncomplicated
CPT/HCPCS: 90715; 99283